=== PATIENT | male | born 1995 | race Two or more races ===

== ENCOUNTER 2020-04-10 12:19 | Emergency (ER) | payer OTHER ==
[~2020-04-10] VITALS: Ht 180.3 cm; Wt 88.5 kg
[2020-04-10] MEDS ORDERED: BETAMETHASONE D15 G2 TOP (14:13)
== END 2020-04-10 14:27 | disposition home or self-care (01) ==
LOC: ER 12:19
DX: B08.8 Other specified viral infections characterized by skin and mucous membrane lesions (principal); M54.16 Radiculopathy, lumbar region; Z03.818 Encounter for observation for suspected exposure to other biological agents ruled out; R21 Rash and other nonspecific skin eruption

== ENCOUNTER → 2020-04-10 | Emergency (ER) | payer OTHER ==
[~2020-04-10] VITALS: Ht 188 cm; Wt 0.5 kg
[~2020-04-10] MED LIST: BETAMETHASONE D15 G2 TOP; PEPCID40 MG PO; ZOFRAN8 M1 PO
== END | disposition left against medical advice (07) ==
LOC: ER 20:43
DX: Z53.20 Procedure and treatment not carried out because of patient's decision for unspecified reasons (principal)

== ENCOUNTER 2020-04-12 21:32 | Emergency (ER) | payer OTHER ==
[~2020-04-12] VITALS: Ht 180.3 cm; Wt 90.7 kg
[~2020-04-12 21:32] MED LIST changes: -PEPCID40 MG PO; -ZOFRAN8 M1 PO
[2020-04-13] MEDS ORDERED: ZOFRAN8 M1 PO (02:06)
[2020-04-13] MEDS ORDERED: PEPCID40 MG PO (02:06)
== END 2020-04-13 02:24 | disposition home or self-care (01) ==
LOC: ER 21:32
DX: K21.9 Gastro-esophageal reflux disease without esophagitis (principal); R07.89 Other chest pain; R53.83 Other fatigue; Z03.818 Encounter for observation for suspected exposure to other biological agents ruled out